=== PATIENT | female | born 1950 | race Caucasian/White ===

== ENCOUNTER 2018-05-10 07:58 | Outpatient (CLI) | payer MEDICARE, OTHER | END 2018-05-10 07:59 | disposition home or self-care (01) | LOC: BICMAMMO 07:58 | PROVIDERS: ATTEND Obstetrics & Gynecology | DX: Z12.31 Encounter for screening mammogram for malignant neoplasm of breast (principal); N63.10 Unspecified lump in the right breast, unspecified quadrant | CPT/HCPCS: 77063; 77067 ==

== ENCOUNTER 2018-05-17 09:03 | Outpatient (CLI) | payer MEDICARE ==
--- NOTE | 2018-05-17 11:41 | ULT ---
LIMITED RIGHT BREAST ULTRASOUND: Date: 05/17/18 PROVIDED CLINICAL HISTORY: Abnormal mammogram. FINDINGS: Limited sonographic interrogation of the right breast in the region of mammographic concern demonstra caterina simple-appearing cysts, which in aggregate measure about 1.6 cm. No concerning sonographic findin gs. IMPRESSION: BIRADS Category 2 - Benign findings. Return to annual screening mammography recommended. POS: [facility]
== END 2018-05-17 09:04 | disposition home or self-care (01) ==
LOC: BICULT 09:03
PROVIDERS: ATTEND Obstetrics & Gynecology
DX: R92.8 Other abnormal and inconclusive findings on diagnostic imaging of breast (principal)